=== PATIENT | female | born 1950 | race Caucasian/White ===

== ENCOUNTER 2016-12-05 08:26 | Day surgery (SDC) | payer MEDICARE ==
[~2016-12-05] VITALS: Ht 165.1 cm; Wt 92.0 kg
[~2016-12-05 08:26] MED LIST: ACETAMINOPHEN 500 MG TAB (TYLENOL) PO PRN; AMIT25TA9 PO; AMOX875T2 PO; CEPH-331 PO; CHONDROITIN/HYALURONATE (DISCOVISC) 1 ML SYR IO ONE; ETOD500T2 PO; GBPN300C PO; ND-PRIM50T PO; PHENYLEPHRINE/KETOROLAC 4 ML VIAL IO ONE; PROP120C36 PO; SIMV40TA2 PO; SODIUM CHLORIDE FLUSH 3 ML SYR IV PRN; SULF1TAB35 PO; TETRACAINE 0.5% OPHTHALMIC SOLUTION 2 ML BTL ONE; TRIA1CAP PO; [UNRECOGNIZED DRUG - REMARK]; diphenhydrAMINE 50 MG/ML INJ (BENADRYL) IV PRN
[2016-12-05 08:36] VITALS: BP 115/66
[2016-12-05] MEDS ORDERED: ASPI-860 PO (08:45)
[2016-12-05] MEDS: LIDOCAINE 3.5% OPHTH GEL (AKTEN) 1 ML BTL OS SCH ×4 (09:12→09:45)
[2016-12-05] MEDS: HOME MEDICATION OS SCH ×3 (09:25→09:45)
[2016-12-05] MEDS: CATARACT PRE-OP EYE DROPS 0.5ML SYRINGE OS SCH ×4 (09:25→10:17)
[2016-12-05] MEDS ORDERED: ALFENTANIL 1,000 MCG/2 ML AMP IV ONE (10:22)
[2016-12-05] MEDS ORDERED: MIDAZOLAM 2 MG/2 ML (VERSED) VIAL ONE (10:22)
[2016-12-05] MEDS ORDERED: GLYCOPYRROLATE 0.2 MG/ML (ROBINUL) 1 ML VIAL ONE (10:45)
[2016-12-05] MEDS ORDERED: ATROPINE SULFATE 1 MG/1 ML SDV IV ONE (10:46)
[2016-12-05 11:16] VITALS: BP 120/94
--- NOTE | 2016-12-05 11:25 | NUR ---
PATIENT PLACES VIGAMOX IN MIDDLE ZIPPER OF PURSE WITH SPOUSE PRESENT. SAMRN WITNESSES.
== END 2016-12-05 11:37 | disposition home or self-care (01) ==
LOC: ASC 08:26
PROVIDERS: ATTEND Ophthalmology
DX: H26.9 Unspecified cataract (principal); H53.8 Other visual disturbances; I10 Essential (primary) hypertension; E78.5 Hyperlipidemia, unspecified
CPT/HCPCS: 36415; 66984; 84132; A9270; C9447; J0461; J2250; V2632

== ENCOUNTER 2016-12-19 09:49 | Day surgery (SDC) | payer MEDICARE ==
[~2016-12-19] VITALS: Ht 165.1 cm; Wt 91.8 kg
[~2016-12-19 09:49] MED LIST changes: -AMIT25TA9 PO; -AMOX875T2 PO; -CEPH-331 PO; -ETOD500T2 PO; -GBPN300C PO; -ND-PRIM50T PO; -PROP120C36 PO; -SIMV40TA2 PO; -SULF1TAB35 PO; -TRIA1CAP PO; -[UNRECOGNIZED DRUG - REMARK]
[2016-12-19 10:26] VITALS: BP 111/68
[2016-12-19] MEDS: LIDOCAINE 3.5% OPHTH GEL (AKTEN) 1 ML BTL OD SCH ×4 (11:01→11:31)
[2016-12-19] MEDS: HOME MEDICATION OD SCH ×3 (11:12→11:31)
[2016-12-19] MEDS: CATARACT PRE-OP EYE DROPS 0.5ML SYRINGE OD SCH ×3 (11:12→11:31)
[2016-12-19] MEDS ORDERED: ALFENTANIL 1,000 MCG/2 ML AMP IV ONE (11:58)
[2016-12-19] MEDS ORDERED: MIDAZOLAM 2 MG/2 ML (VERSED) VIAL ONE (11:58)
[2016-12-19 12:27] VITALS: BP 138/67
== END 2016-12-19 13:00 ==
LOC: ASC 09:49
PROVIDERS: ATTEND Ophthalmology
PROC: 08RJ3JZ Replacement of Right Lens with Synthetic Substitute, Percutaneous Approach (ICD-10-PCS; principal; 2016-12-19)
DX: H26.9 Unspecified cataract (principal); I10 Essential (primary) hypertension; E78.00 Pure hypercholesterolemia, unspecified; H54.7 Unspecified visual loss
CPT/HCPCS: 36415; 66984; 84132; A9270; C9447; J2250; V2632

== ENCOUNTER → 2017-01-16 | Outpatient (CLI) | payer MEDICARE ==
[2017-01-16 17:39] LABS: ALBUMIN 4.6 g/dL (3.4-5.0); ANION GAP 17.4 MEQ/L (3-15); CALCULATED IONIZED CALCIUM 4.3 mg/dL (3.8-4.6); TOTAL PROTEIN 7.3 g/dL (6.4-8.5)
[2017-01-16 17:40] LABS: BASOPHILS % (AUTO) 1 % (0-2); EOSINOPHILS # (AUTO) 0.2 10^3uL; EOSINOPHILS % (AUTO) 3 % (0-4); LYMPHOCYTES # (AUTO) 3.2 X10^3; MEAN CORPUSCULAR HGB CONC 34.9 g/dL (31.0-37.0); MEAN CORPUSCULAR VOLUME 91 FL (80-100); MEAN PLATELET VOLUME 10.9 FL (6.0-9.5); MONOCYTES # (AUTO) 0.6 X10^3; MONOCYTES % (AUTO) 7 % (3-11); NEUTROPHILS # (AUTO) 4.6 X10^3; NEUTROPHILS % (AUTO) 53 % (51-67); PLATELET COUNT 230 10^3uL (150-450); WHITE BLOOD COUNT 8.79 10^3uL (4.0-11.0)
[2017-01-16 18:02] LABS: MEAN CORPUSCULAR HEMOGLOBIN 31.9 PG (26.0-34.0)
[2017-01-16 18:09] LABS: CLARITY,URINE Clear; COLOR,URINE Yellow; GLUCOSE, URINE (UA) Negative (Negative); LEUKOCYTE ESTERASE ,URINE 1+ (Negative); UROBILINOGEN,URINE 0.2 mg/dL (0.2-1.0)
[2017-01-16 19:16] LABS: BILIRUBIN,URINE 1+ (Negative)
[2017-01-16 19:25] LABS: AMORPHOUS SEDIMENT,UR 1+ /HPF; RBC,URINE None Seen /HPF; URINE CENTRIFUGED VOLUME 12 mL
== END ==
LOC: LAB 15:27
PROVIDERS: ATTEND Family Medicine
DX: R73.09 Other abnormal glucose (principal); E78.5 Hyperlipidemia, unspecified; G25.2 Other specified forms of tremor; I10 Essential (primary) hypertension; E78.2 Mixed hyperlipidemia; R82.90 Unspecified abnormal findings in urine
CPT/HCPCS: 36415; 80053; 80061; 81003; 81015; 83036; 85025; 87088